=== PATIENT | male | born 1940 | race Caucasian/White ===

== ENCOUNTER 2018-07-01 17:34 | Emergency (ER) | payer OTHER ==
[2018-07-01 17:58] VITALS: BMI 29.3
--- NOTE | 2018-07-01 17:58 | PDOC ---
Rapid Medical Evaluation Time Seen by Provider: 07/01/18 17:51 Medical Evaluation: Allergies Allergy/AdvReac Type Severity Reaction Status Date / Time No Known Allergies Allergy Verified 02/09/16 11:51 07/01/18 17:56 The patient complains of: rt thoracic pain worsened with movement, no rash, seen by urgent care and states muscular so given alleve with no relief On brief exam: no reproducible tenderness, skin intact, lcta, no crepitus with movement The patient ordered for: chest xray The patient to proceed to the ED Discharge Disposition - Diagnosis Back pain - Referrals - Patient Instructions - Post Discharge Activity
[2018-07-01] MEDS ORDERED: KETOROLAC TROMETHAMINE 30 MG/1 ML VIAL IM ONE (18:49)
[2018-07-01] MEDS ORDERED: KETOROLAC TROMETHAMINE 30 MG/1 ML VIAL ONE (18:51)
--- NOTE | 2018-07-01 18:54 | PDOC ---
History of Present Illness - General Chief Complaint: Back Pain Stated Complaint: BACK PAIN Time Seen by Provider: 07/01/18 17:51 History Source: Patient Exam Limitations: No Limitations - History of Present Illness Initial Comments: 07/01/18 18:54 78 yr male history of prostate cancer 2013 presents with 2 weeks pain to the right mid back worse with movement, worse at night. Pt denies trauma, no SOB, no CP no abd pain no fever no cough. Pt took naprosyn once with no relief. Pt states he stands on his feet all day at work and the pain "will jab me out of nowhere". 07/01/18 18:55 Occurred: reports: other (2 weeks) Severity: reports: moderate Pain Location: reports: back Method of Injury: Yes: unknown Past History - Past Medical History Allergies/Adverse Reactions: Allergies Allergy/AdvReac Type Severity Reaction Status Date / Time No Known Allergies Allergy Verified 07/01/18 17:57 Home Medications: Ambulatory Orders Amlodipine Besylate 5 mg PO DAILY 02/09/16 Fluoxetine HCl 20 mg PO DAILY 02/09/16 Pilocarpine 1% [Pilostat 1% -] 1 drop OU QID 02/09/16 Travoprost [Travatan Z] 1 drop OU HS 02/09/16 Ibuprofen 600 mg PO QID PRN #20 tablet 07/01/18 Anemia: No Asthma: No Cancer: Yes (prostate 2013) Cardiac Disorders: No CVA: No COPD: No CHF: No Dementia: No Diabetes: No GI Disorders: No Disorders: No HTN: Yes Hypercholesterolemia: No Liver Disease: No Seizures: No Thyroid Disease: No - Surgical History Abdominal Surgery: No Appendectomy: No Cardiac Surgery: No Cholecystectomy: No Lung Surgery: No Neurologic Surgery: No Orthopedic Surgery: No - Suicide/Smoking/Psychosocial Hx Smoking History: Never smoked Have you smoked in the past 12 months: No If you are a former smoker, when did you quit?: 40 years ago Information on smoking cessation initiated: No Hx Alcohol Use: No Drug/Substance Use Hx: No Substance Use Type: Alcohol Hx Substance Use Treatment: No Trauma Specific PMHX - Complaint Specific PMHX Arthritis: No Back Injury: No Neck Injury: No Hx Sacro Iliac Joint Dysfunction: No Review of Systems - Review of Systems Able to Perform ROS?: Yes Is the patient limited Italian proficient: No Constitutional: No: Symptoms Reported HEENTM: No: Symptoms Reported Respiratory: No: Symptoms reported Cardiac (ROS): No: Symptoms Reported ABD/GI: No: Symptoms Reported : No: Symptoms Reported Musculoskeletal: Yes: Symptoms Reported, Back Pain *Physical Exam - Vital Signs Last Vital Signs Temp Pulse Resp BP Pulse Ox 97.8 F 67 16 134/80 100 07/01/18 17:53 07/01/18 17:53 07/01/18 17:53 07/01/18 17:53 07/01/18 17:53 - Physical Exam General Appearance: Yes: Nourished HEENT: positive: EOMI, CAROL, Normal ENT Inspection Neck: positive: Supple. negative: Lymphadenopathy (R), Lymphadenopathy (L) Respiratory/Chest: positive: Lungs Clear, Normal Breath Sounds Cardiovascular: positive: Regular Rhythm, Regular Rate Gastrointestinal/Abdominal: positive: Soft Musculoskeletal: positive: Normal Inspection, Other (no rash ). 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 NML intact, Fully Oriented, Alert, Normal Mood/ Affect, Normal Response, Motor Strength /5 ED Treatment Course - Medications Given in the ED: ED Medications Discontinued Medications Generic Name Dose Route Start Last Admin Trade Name Freq PRN Reason Stop Dose Admin Ketorolac Tromethamine 30 mg 07/01/18 18:49 07/01/18 18:54 Toradol Injection - IM 07/01/18 18:50 30 mg ONCE ONE Administration Medical Decision Making - Medical Decision Making 07/01/18 18:59 cc: back pain 2 weeks right paraspinal thoracic region chest xray ordered from [facility] toradol 30mg given for pain non toxic appearing , stable vitals will r/o pneumonia r/o mass 07/01/18 19:25 ct chest send to main ER for further care Meredith Hernandez NP to assume care of the patient. 07/02/18 08:31 *DC/Admit/Observation/Transfer Diagnosis at time of Disposition: Back pain Qualifiers: Back pain location: thoracic back pain Chronicity: acute Back pain laterality: right Qualified Code(s): M54.6 - Pain in thoracic spine - Discharge Dispostion Disposition: HOME - Prescriptions Prescriptions: Ibuprofen 600 mg PO QID PRN #20 tablet PRN Reason: Back Pain. take with food - Referrals Referrals: Marcin Casper MD [Primary Care Provider] - Osmany Leiva MD [Staff Physician] - Call tomorrow - Patient Instructions Printed Discharge Instructions: Low Back Pain Additional Instructions: please follow up with a pulmonolgist as soon as possible. take ibuprofen every 6 hours as needed for pain. - Post Discharge Activity
--- NOTE | 2018-07-01 21:09 | PDOC ---
*Physical Exam - Vital Signs Last Vital Signs Temp Pulse Resp BP Pulse Ox 97.8 F 67 16 134/80 100 07/01/18 17:53 07/01/18 17:53 07/01/18 17:53 07/01/18 17:53 07/01/18 17:53 - Physical Exam General Appearance: Yes: Appropriately Dressed Respiratory/Chest: positive: Chest Tender, Lungs Clear Gastrointestinal/Abdominal: positive: Normal Bowel Sounds, Soft ED Treatment Course - Medications Given in the ED: ED Medications Discontinued Medications Generic Name Dose Route Start Last Admin Trade Name Freq PRN Reason Stop Dose Admin Ketorolac Tromethamine 30 mg 07/01/18 18:49 07/01/18 18:54 Toradol Injection - IM 07/01/18 18:50 30 mg ONCE ONE Administration Medical Decision Making - Medical Decision Making 07/01/18 21:05 CT chest: subtle minimal to mild subpleural interstitial thickeneing is seen within the Right lower lobe laterally and posteriorly which is probably chronic in nature, less likely acute. healed 11th rib fracture posteriorly *DC/Admit/Observation/Transfer Diagnosis at time of Disposition: Back pain Qualifiers: Back pain location: thoracic back pain Chronicity: acute Back pain laterality: right Qualified Code(s): M54.6 - Pain in thoracic spine - Discharge Dispostion Disposition: HOME - Prescriptions Prescriptions: Ibuprofen 600 mg PO QID PRN #20 tablet PRN Reason: Back Pain. take with food - Referrals Referrals: Marcin Casper MD [Primary Care Provider] - Osmany Leiva MD [Staff Physician] - Call tomorrow - Patient Instructions Printed Discharge Instructions: Low Back Pain Additional Instructions: please follow up with a pulmonolgist as soon as possible. take ibuprofen every 6 hours as needed for pain. - Post Discharge Activity
[2018-07-01 21:56] VITALS: BP 132/78; PULSE 78; TEMP 98
--- NOTE | 2018-07-03 10:01 | EKG ---
Test Reason : Blood Pressure : / mmHG Vent. Rate : 051 BPM Atrial Rate : 051 BPM P-R Int : 152 ms QRS Dur : 158 ms QT Int : 502 ms P-R-T Axes : 057 -68 008 degrees QTc Int : 462 ms SINUS BRADYCARDIA WITH PREMATURE ATRIAL COMPLEXES LEFT AXIS DEVIATION RIGHT BUNDLE BRANCH BLOCK SEPTAL INFARCT (CITED ON OR BEFORE 25-JUN-2013) ABNORMAL ECG Confirmed by DARIAN CASANOVA MD ([id number]) on 07/03/2018 10:01:23 AM Referred By: JOSE Confirmed By:DARIAN CASANOVA MD
== END 2018-07-01 21:46 | disposition home or self-care (01) ==
LOC: JER 17:34 → JERFT 17:34 → JER 21:46
DX: M54.6 Pain in thoracic spine (principal); Z85.46 Personal history of malignant neoplasm of prostate; I10 Essential (primary) hypertension; Z87.891 Personal history of nicotine dependence
CPT/HCPCS: 71046-TC-FY; 71250-TC; 93005; 93010; 99282-25

== ENCOUNTER 2021-06-11 10:16 | Day surgery (SDC) | payer OTHER ==
[2021-06-06 15:35] VITALS: BMI 28.8
[2021-06-11 11:31] VITALS: TEMP 96.7
[2021-06-11 11:47] VITALS: BP 132/86; PULSE 66
== END 2021-06-11 11:48 | disposition home or self-care (01) ==
LOC: FASU-ENDO 10:16
PROVIDERS: ATTEND Internal Medicine Gastroenterology
PROC: 0DB98ZX Excision of Duodenum, Via Natural or Artificial Opening Endoscopic, Diagnostic (ICD-10-PCS; 2021-06-11)
PROC: 0DB68ZX Excision of Stomach, Via Natural or Artificial Opening Endoscopic, Diagnostic (ICD-10-PCS; 2021-06-11)
PROC: 0DBL8ZX Excision of Transverse Colon, Via Natural or Artificial Opening Endoscopic, Diagnostic (ICD-10-PCS; principal; 2021-06-11 10:48)
DX: Z86.010 Personal history of colon polyps (principal); K57.30 Diverticulosis of large intestine without perforation or abscess without bleeding; K63.89 Other specified diseases of intestine; K29.50 Unspecified chronic gastritis without bleeding; K44.9 Diaphragmatic hernia without obstruction or gangrene
CPT/HCPCS: 88305-TC; 88342-TC